=== PATIENT | female | born 1995 | race Caucasian/White ===

== ENCOUNTER 2021-12-16 13:55 | Outpatient (CLI) | payer BC, SELFPAY ==
[2021-12-16 15:31] LABS: Glucose* 97 mg/dL (60-115)
[2021-12-16 16:07] LABS: HIV 1/2/P24 Combo Screen* Negative (Negative)
[2021-12-16 16:17] LABS: Hepatitis C Virus Antibody* Negative (Negative)
[2021-12-16 18:54] LABS: Chlamydia DNA Amplified* NOT DETECTED (No Detected); GC DNA Amplified* NOT DETECTED (No Detected)
[2021-12-19 08:49] LABS: Rapid Plasma Reagin (RPR) Non Reactive (Non Reactive)
[2021-12-20 19:02] LABS: Hepatitis B Surface Antigen* Negative (Negative)
== END 2021-12-16 13:56 | disposition home or self-care (01) ==
PROVIDERS: Visit Provider Registered Nurse
DX: Z01.419 Encounter for gynecological examination (general) (routine) without abnormal findings (principal); Z12.4 Encounter for screening for malignant neoplasm of cervix; Z13.1 Encounter for screening for diabetes mellitus; Z11.3 Encounter for screening for infections with a predominantly sexual mode of transmission
CPT/HCPCS: 82947; 86592; 86703; 86803; 87340; 87491; 87591; 88174

== ENCOUNTER 2022-06-28 16:05 | Outpatient (CLI) | payer BC, SELFPAY ==
[2022-06-28 17:38] LABS: HCG Quantitative* < 2.39 mIU/mL
== END 2022-06-28 16:06 | disposition home or self-care (01) ==
PROVIDERS: Visit Provider Registered Nurse
DX: O20.9 Hemorrhage in early pregnancy, unspecified (principal)
CPT/HCPCS: 84702

== ENCOUNTER 2022-08-31 08:09 | Outpatient (CLI) | payer BC, SELFPAY ==
--- NOTE | 2022-08-31 08:15 | CRLHL7_ITS ---
For Patients: As a result of the Cures Act, medical imaging exams and procedure reports are released immediately into your electronic medical record. You may view this report before your referring provider. If you have questions, please contact your health care provider. INDICATION: First trimester scan, establish dates. COMPARISON: None. TECHNIQUE: Real-time wilson-scale imaging of the pelvis was performed. FINDINGS: Sonographic imaging demonstrates a single living intrauterine gestation. The embryo demonstrates a regular cardiac rate measuring 172 beats per minute. The embryo`s crown-rump length measurement of 2.2 cm corresponds to a gestational age of 8 weeks 6 days with a sonographic due date of 04/06/2023. There is a normal-appearing yolk sac. There are no gross abnormalities noted within the embryo at this early state of development. The gestational sac has a normal appearance. There is no evidence of a perigestational hemorrhage. The amount of fluid within the sac appears appropriate for gestational age. The cervix is closed. The myometrium appears normal. The ovaries are of normal size. Probable corpus luteal cyst right ovary. There are no suspicious fluid collections noted in the cul-de-sac. IMPRESSION: Normal first trimester OB ultrasound exam. Gestational age calculated at 8 weeks 6 days with a sonographic due date of 04/06/2023. Dictated by Lee Cabrales MD @ 08/31/2022 10:06:45 AM (Electronically Signed)
== END 2022-08-31 08:10 | disposition home or self-care (01) ==
PROVIDERS: Visit Provider Physician Assistant
DX: Z34.91 Encounter for supervision of normal pregnancy, unspecified, first trimester (principal); Z3A.08 8 weeks gestation of pregnancy
CPT/HCPCS: 76817; 86703; 86803; 86850; 86900; 86901; 87086; 87340; 87491; 87591

== ENCOUNTER 2022-08-31 09:38 | Outpatient (CLI) | payer BC, SELFPAY ==
[2022-08-31 18:35] LABS: Chlamydia DNA Amplified* NOT DETECTED (No Detected); GC DNA Amplified* NOT DETECTED (No Detected)
== END 2022-08-31 09:39 | disposition home or self-care (01) ==
PROVIDERS: Visit Provider Physician Assistant
DX: Z34.91 Encounter for supervision of normal pregnancy, unspecified, first trimester (principal); Z3A.09 9 weeks gestation of pregnancy
CPT/HCPCS: 86592; 86703; 86762; 86787; 86803; 86850; 86900; 86901; 87086; 87340; 87491; 87591

== ENCOUNTER 2022-11-16 08:08 | Outpatient (CLI) | payer BC, SELFPAY ==
--- NOTE | 2022-11-16 08:15 | CRLHL7_ITS ---
For Patients: As a result of the Century Cures Act, medical imaging exams and procedure reports are released immediately into your electronic medical record. You may view this report before your referring provider. If you have questions, please contact your health care provider. INDICATION: Evaluate anatomy. COMPARISON: 08/31/2022 TECHNIQUE: Real time wilson scale imaging of the fetus was performed as well as color Doppler analysis of the umbilical vessels. FINDINGS: Sonographic imaging demonstrates a single living intrauterine gestation. Fetus demonstrates a regular cardiac rate of 154 beats per minute. Fetus has a variable position. The placenta lies anteriorly without evidence of placenta previa. The head of the placenta is located 3.6 cm from the internal cervical os. Amniotic fluid volume appears normal. Single deepest vertical pocket: 3 point a cm. The cervix is closed and measures 4.3 cm in length. The composite ultrasound gestational age is calculated at 19 weeks 6 days with an estimated sonographic due date of 04/06/2023. The estimated weight is 326 grams which lies at the 37th %. The following biometric measurements were obtained: Biparietal diameter: 4.5 cm/19 weeks 4 days 26th% Head circumference: 16.7 cm/19 weeks 3 days 12th% Abdominal circumference: 14.5 cm/19 weeks 6 days 34th% Femur length: 3.3 cm/20 weeks 2 days 50th% The HC/AC ratio measures: 1.15 range (1.08-1.26) On anatomic survey, there is a normal appearance of the cerebral ventricles, cavum septi pellucidi, cisterna magna and cerebellum. The nose, lips, and facial profile appear normal. The cervical, thoracic and lumbar spine are well visualized and appear normal. There is a normal four-chamber heart view and the left and right ventricular outflow tracts appear normal. The diaphragm and stomach appear normal. The kidneys and bladder also appear normal. There is a normal three-vessel cord and cord insertion site. The four extremities appear normal. IMPRESSION: Normal OB ultrasound exam with concordance of clinical and sonographic dating. No intrinsic abnormalities noted on anatomic survey. Dictated by Lee Cabrales MD @ 11/16/2022 10:07:21 AM (Electronically Signed)
== END 2022-11-16 08:09 | disposition home or self-care (01) ==
LOC: US 08:09
PROVIDERS: Visit Provider Obstetrics & Gynecology
DX: Z34.92 Encounter for supervision of normal pregnancy, unspecified, second trimester (principal); Z3A.20 20 weeks gestation of pregnancy
CPT/HCPCS: 76805

== ENCOUNTER 2023-01-12 13:10 | Outpatient (CLI) | payer BC, SELFPAY | END 2023-01-12 13:11 | disposition home or self-care (01) | PROVIDERS: Visit Provider Obstetrics & Gynecology | DX: Z34.93 Encounter for supervision of normal pregnancy, unspecified, third trimester (principal); Z3A.28 28 weeks gestation of pregnancy | CPT/HCPCS: 86592 ==

== ENCOUNTER 2023-02-20 07:30 | Outpatient (RCR) | payer BC, SELFPAY | END 2023-05-30 10:00 | disposition home or self-care (01) | PROVIDERS: Visit Provider Obstetrics & Gynecology | DX: O99.891 Other specified diseases and conditions complicating pregnancy (principal); M79.18 Myalgia, other site; R10.2 Pelvic and perineal pain; Z51.89 Encounter for other specified aftercare | CPT/HCPCS: 97110; 97112; 97161; 97530 ==

== ENCOUNTER 2023-03-09 15:29 | Outpatient (CLI) | payer BC, SELFPAY ==
[2023-03-10 14:07] LABS: Strep B DNA Probe Negative (Negative)
[2023-03-10 14:09] LABS: Strep B Susceptibility Needed? No
== END 2023-03-09 15:30 | disposition home or self-care (01) ==
LOC: NFLDREF 15:29
PROVIDERS: Visit Provider Obstetrics & Gynecology
DX: Z34.90 Encounter for supervision of normal pregnancy, unspecified, unspecified trimester (principal)
CPT/HCPCS: 87081; 87653

== ENCOUNTER 2023-04-10 16:37 | Inpatient (IN) | payer BC, SELFPAY ==
[2023-04-10 16:58] VITALS: BMI 29.7
[2023-04-10 17:05] VITALS: BP 113/64; PULSE 108; RESP 16; TEMP 36.8
--- NOTE | 2023-04-10 17:06 | W.PM.LDBA ---
Subjective History of Present Illness Date Seen: 04/10/23 Narrative: Patient is being admitted to Labor and Delivery for postdates induction of labor. She is a 27 year old woman at 40 6/7 weeks' gestation. Her full history and physical was dictated by Dr. Castillo on 03/16/23. Please see this for details. Specific Issues/Plans YOVANA 04/04/23 by LMP of 06/28/22 c/w 1st trimester USN Spouse: Nrobert. Baby: Girl. [place] name Healthy. 1. Pubic symphysis pain. PT referral placed 10/27/22 TDap: 01/26/23 Influenza:02/22/23 RSV vaccine: 03/09/23 OB - Problem Based A/P Additional Plan (1) Post-dates : Status: Acute Plan: Cervical ripening with Cook catheter. Using aseptic technique, a Cook catheter is placed. Intrauterine and intravaginal balloons were both inflated to 60 mL. She may have morphine and Vistaril for pain management overnight. Begin low-dose Pitocin at 9:30 p.m.. Anticipate removal of Cook catheter after 12 hours. Continuous monitoring during Pitocin used OB Result Labs GBS Status: negative (03/09/23) OB Exam Physical Exam Vital signs: Pulse BP 108 H 113/64 04/10/23 17:05 04/10/23 17:05 Narrative: Physical exam: General: No acute distress Psych: Alert and oriented x3, full affect HEENT: Normocephalic, atraumatic Heart: Regular rate and rhythm, no murmur rub or gallop Lungs: Clear to auscultation bilaterally Abdomen: Soft, nontender, gravid Lower extremities: No edema or erythema Pelvic exam: Cervix 2 / 70 / -2 / midposition / soft tracing: Baseline 135, accelerations present, no deceleration, moderate variability Infrequent contractions
[2023-04-10 18:13] LABS: Basophils Absolute Auto 0.04 K/uL (0.00-0.30); Basophils Percent Auto 0.4 % (0.0-3.0); Eosinophils Absolute Auto 0.07 K/uL (0.00-0.50); Eosinophils Percent Auto 0.7 % (0.0-7.0); Hematocrit 36.7 % (33.0-51.0); Hemoglobin* 11.9 gm/dL (12.0-16.0); Immature Granulocytes Abs Auto 0.08 K/uL (0.00-0.30); Immature Granulocytes Pct Auto 0.8 %; Lymphocytes Absolute Auto 2.13 K/uL (0.90-2.90); Lymphocytes Percent Auto 21.3 % (20-44); Mean Corpuscular HGB Conc 32 gm/dL (32-36); Mean Corpuscular Hemoglobin 28 pg (26-34); Mean Corpuscular Volume 85 fL (80-100); Monocytes Percent Auto 7.7 % (0.0-11.0); Neutrophils Absolute Auto 6.93 K/uL (1.7-7.0); Neutrophils Percent Auto 69.1 % (42.0-72.0); Platelet Count* 190 K/uL (140-440); RDW Coefficient of Variation % 13.8 % (11.5-15.5); Red Blood Count 4.31 m/uL (4.00-5.20); White Blood Count* 10.02 K/uL (4.50-11.00)
[2023-04-10 18:23] LABS: Slide Review Reflex No
[2023-04-10 19:24] VITALS: PULSE 118; O2SAT 97
[2023-04-10 19:25] VITALS: BP 115/68; PULSE 114; TEMP 36.6
[2023-04-10 19:29] VITALS: PULSE 104; O2SAT 97
[2023-04-10] MEDS: MORPHINE 10 MG/ML inj IM (20:55)
[2023-04-10] MEDS: hydrOXYzine pamoate 25 MG CAPSULE 100 MG PO (20:55)
[2023-04-10 21:02] VITALS: BP 117/69; PULSE 113
[2023-04-10 21:06] VITALS: RESP 18; TEMP 36.6
[2023-04-11] VITALS (83 sets, daily range): BP systolic 84–125; BP diastolic 48–86; PULSE 84–148; RESP 16–18; TEMP 36.6–37.2; O2SAT 94–100
[2023-04-11] MEDS: LACTATED RINGERS 1000 ML 1,000 ML 125 ML IV (02:57)
[2023-04-11] MEDS: OXYTOCIN 30 unit/500 ML in NS 30 UNIT/500 ML BAG IVPB (03:18)
--- NOTE | 2023-04-11 06:11 | PM.OBPNL ---
Subjective Time Seen by Provider: 05:45 Date Seen: 04/11/23 Narrative: Saritha is a 27 yo woman at 41 0/7 weeks here for induction of labor for postdates . She had placement of Cook catheter overnight, and had pitocin started as well. She was able to sleep with help of morphine and Vistaril. Objective Exam: Gen - NAD, lying in bed Cervical exam - Cook catheter removed. Cervix now 5 cm / 85% / -2 station and deviated to patient's left. Bulging bag of water noted. Vital Signs: Last Vital Signs Temp 98.5 F 04/11/23 05:40 Pulse 107 H 04/11/23 05:41 Resp 16 04/11/23 05:40 BP 102/58 L 04/11/23 05:41 Pulse Ox 97 04/10/23 19:29 Comments: tracing: Baseline 135 / accels present / no decels / moderate variability. Contractions appear erratic with varying amplitudes on toco Contractions Pitocin Rate (mU/min): 10 Assessment Assessment: early labor Status: Category l Tracing Comments: Reassuring status. Labor Progress: Cervix now solidly favorable after Cook Catheter. station is no longer engaged. Will increase pitocin, favor repositioning prior to AROM. Maternal Status: Stable. Plan Plan: Continue pitocin augmentation Continuous monitoring Assess for AROM in the next 2 hours
--- NOTE | 2023-04-11 08:26 | PM.OBPNL ---
Objective Vital Signs: Last Vital Signs Temp 98.5 F 04/11/23 05:40 Pulse 95 04/11/23 08:16 Resp 16 04/11/23 05:40 BP 116/72 04/11/23 08:16 Pulse Ox 97 04/10/23 19:29 Contractions Pitocin Rate (mU/min): 10 Assessment Status: Category l
[2023-04-11] MEDS: LACTATED RINGERS 1000 ML 1,000 ML 1200 ML IV (10:34)
[2023-04-11] MEDS: ROPIVACAINE 0.2% 100 ml 100 ML 12 MG EPIDURAL (11:12)
[2023-04-11] MEDS: PHENYLEPHRINE 100 MCG/ML SYRINGE IVP ×2 (11:28→11:42)
[2023-04-11] MEDS: SODIUM CHLORIDE 0.9 % (FLUSH) 10 ML SYRINGE IVF (11:31)
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
[2023-04-11 19:45] LABS: Basophils Percent Auto 0.2 % (0.0-3.0); Eosinophils Percent Auto 0.1 % (0.0-7.0); Hematocrit 33.5 % (33.0-51.0); Immature Granulocytes Pct Auto 0.3 %; Lymphocytes Percent Auto 5.9 % (20-44); Mean Corpuscular HGB Conc 33 gm/dL (32-36); Mean Corpuscular Hemoglobin 28 pg (26-34); Mean Corpuscular Volume 85 fL (80-100); Monocytes Percent Auto 6.9 % (0.0-11.0); Neutrophils Percent Auto 86.6 % (42.0-72.0); Platelet Count* 162 K/uL (140-440); RDW Coefficient of Variation % 13.8 % (11.5-15.5); Red Blood Count 3.94 m/uL (4.00-5.20); White Blood Count* 19.27 K/uL (4.50-11.00)
[2023-04-11 19:46] LABS: Slide Review Reflex No
[2023-04-11 19:56] LABS: Chloride* 106 mmol/L (96-114)
[2023-04-11 19:57] LABS: Potassium* 3.8 mmol/L (3.6-5.1); Sodium* 135 mmol/L (135-149)
[2023-04-11 19:59] LABS: Creatinine* 0.5 mg/dL (0.5-1.5); Est. Creatinine Clearance* 143.36; Estimated Glomerular Filt Rate 130 ml/min
[2023-04-11 20:00] LABS: Anion Gap 8 mEq/L (7-15); Blood Urea Nitrogen* 6 mg/dL (5-24); Calcium* 8.6 mg/dL (8.4-10.6); Carbon Dioxide* 21 mmol/L (20-32); Glucose* 170 mg/dL (60-115)
[2023-04-11] MEDS: ACETAMINOPHEN 500 MG TABLET 1000 MG PO (20:04)
--- NOTE | 2023-04-11 20:09 | W.PM.VAGDEL1 ---
Procedure Procedure Done: Global Events: Other (Late term gestation) Intrapartal Events: Labor Induction Delivery monitor: external FHT Route of delivery: Laceration description: Labial Delivery repair: Vicryl Anesthesia type: Epidural Disposition: floor Complications: None Narrative: Ms. Jean Baptiste is a 27yo GP0 at 41w0d GA. She was admitted to the hospital for IOL in the setting of late term gestation. heart tones on admission were category 1. Her was otherwise uncomplicated. Her labor was induced with cook catheter and pitocin, and epidural were utilized for pain management. Status of bag of elias: AROM performed with return of clear fluid. heart tones during active labor were primarily category 1. She made excellent progress though the active phase of labor was noted to be complete and +2 at 1500. I presented to the bedside, where she was noted to be complete, +3, and direct OA. Fetus made excellent descent with maternal expulsive efforts. FHR tracing was primarily category 1 in the second stage of labor, intermittent variable decelerations. She had a at 1556. Baby delivered OA, restituted RADHA and the anterior and posterior shoulders delivered without difficulty. Loose nuchal cord was noted, delivered through and reduced at the perineum. The cord was clamped and cut after delayed cord clamping. Active management of the third stage was initiated with pitocin and gentle traction on the umbilical cord, and the placenta delivered spontaneous and intact at 1601. Cord gases sent: no Cord blood sent for ABO: no Perineum and vagina were inspected, and the following lacerations were noted: left labial laceration, repaired in the usual fashion with 3-0 vicryl under existing epidural anesthesia. Excellent hemostasis was noted, with total QBL of 100cc. All counts were correct. Mother and in stable condition following the .? Gender: Female presentation: vertex Placental Delivery Description: Spontaneous Cord Description: 3 Vessels and Nuchal Cord
--- NOTE | 2023-04-11 20:22 | P.OBPN_ITS ---
OB - PN:Subj Subjective Time Seen by Provider: 19:25 Date Seen: 04/11/23 Interval history: Patient was noted to be mildly, transient dizziness upon ambulation post- delivery. VS obtained and were notable for tachycardia to 139bp and BP of 95/49mmHg. RR of 16, O2 sat 96. I presented to bedside, where Saritha notes she was feeling better. She notes some tachycardia at baseline and a sensation of being able to hear her pulse in her right ear throughout . This is present at this time, but is normal relative to her baseline. She denies any chest pain, dyspnea, dizziness, lightheadedness. Vaginal bleeding has been appropriate per bedside RN, Saritha affirms she has had no heavy bleeding. No significant perineal or abdominal pain. She has not yet voided since delivery. After transient dizziness, she otherwise continue to ambulate without difficulty. No lower extremity pain, swelling or erythema. OB - PN: Obj Exam Physical Exam: Vital signs: Temp Pulse Resp BP Pulse Ox 98.7 F 139 H 16 95/49 L 96 04/11/23 16:10 04/11/23 18:42 04/11/23 16:10 04/11/23 18:42 04/11/23 11:59 Narrative: Physical exam: General: No acute distress Psych: Alert and oriented x3, full affect Heart: Rapid rate - regular rhythm, no murmur rub or gallop Lungs: Clear to auscultation bilaterally Abdomen: Soft, non-distended. Fundus palpated to right, 1 above U. Perineum: Pad inspected after fundal massage, no appreciable bleeding on pad. OB - PN: Obj Data Labs Labs: Laboratory Results - last 24 hr 04/11/23 19:40 WBC 19.27 H RBC 3.94 L Hgb 11.0 L Hct 33.5 MCV 85 MCH 28 MCHC 33 RDW Coeff of Sharon 13.8 Plt Count 162 Neut % (Auto) 86.6 H Lymph % (Auto) 5.9 L [place] % (Auto) 6.9 Eos % (Auto) 0.1 Baso % (Auto) 0.2 Neut # (Auto) 16.70 H Lymph # (Auto) 1.10 [place] # (Auto) 1.30 H Eos # (Auto) 0.00 Baso # (Auto) 0.00 Abs Immat Gran (auto) 0.10 Imm/Tot Granulo (auto) 0.3 Sodium 135 Potassium 3.8 Chloride 106 Carbon Dioxide 21 Anion Gap 8 BUN 6 Creatinine 0.5 Estimated Creat Clear 143.36 Estimated GFR 130 Glucose 170 H Calcium 8.6 OB - PN: A/P Delivery Assessment and Plan (1) Post-dates : Status: Acute Plan Saritha is PPD0 from [facility] following induction of labor for late term gestation. Her delivery was uncomplicated, QBL of 100 mL with only a left labial laceration. She has had mild and transient dizziness with ambulation, where vitals pleasantly were noted to be significant for mild hypertension and tachycardia to 139 beats per minute. Under review of record, she does have baseline tachycardia throughout her with a typical rate of 100 to 110s. She did intermittently had tachycardia through labor as well. She denies chest pain, dyspnea, dizziness or lightheadedness. No history of cardiovascular disease or hypercoagulable state. Physical exam is entirely reassuring. Her fundus does palpate 1 above umbilicus and off to right, likely secondary to distention of the bladder. Plan to proceed with EKG, CBC and BMP. Addendum at 1999: EKG was notable only for sinus tachycardia with a rate of 134 beats per minute. CBC obtained with hemoglobin of 11, BMP within normal limits. On recheck of vitals, her heart rate is now in the 120s. I suspect the likely etiology of her dizziness/tachycardia was an exacerbation from her baseline in the acute period with possible contributing volume depletion. Patient is well appearing and asymptomatic at this time. She has yet to void, recommend timed voiding with in and out catheterization if ongoing retention is noted.
[2023-04-12] MEDS: ACETAMINOPHEN 500 MG TABLET 1000 MG PO ×3 (03:36→22:01)
[2023-04-12 04:02] VITALS: BP 99/61; PULSE 93; RESP 16; TEMP 36.7; O2SAT 98
[2023-04-12 06:46] LABS: Hemoglobin* 11.9 gm/dL (12.0-16.0)
[2023-04-12] MEDS: IBUPROFEN 600 MG TABLET PO ×2 (08:22→17:21)
[2023-04-12] MEDS: DOCUSATE SODIUM 100 MG CAPSULE PO (08:23)
[2023-04-12 08:26] VITALS: BP 93/61; PULSE 93; RESP 16; TEMP 36.4; O2SAT 96
--- NOTE | 2023-04-12 09:10 | PM.OBPNVD1 ---
OB - PN:Subj Subjective Date Seen: 04/12/23 Interval history: Patient was noted to be mildly, transient dizziness upon ambulation post-delivery. VS obtained and were notable for tachycardia to 139bp and BP of 95/49mmHg. RR of 16, O2 sat 96. I presented to bedside, where Saritha notes she was feeling better. She notes some tachycardia at baseline and a sensation of being able to hear her pulse in her right ear throughout . This is present at this time, but is normal relative to her baseline. She denies any chest pain, dyspnea, dizziness, lightheadedness. Vaginal bleeding has been appropriate per bedside RN, Saritha affirms she has had no heavy bleeding. No significant perineal or abdominal pain. She has not yet voided since delivery. After transient dizziness, she otherwise continue to ambulate without difficulty. No lower extremity pain, swelling or erythema. Patient comments OB post-: no complaints, pain well controlled, tolerating diet and flatus present [place] infant status: and doing well [place] feeding status: exclusively Narrative: The patient feels well.? The pain is well controlled with current medications.? She has no new complaints.? Urinary output is adequate and she is voiding without difficulty.? Has a good appetite, is tolerating a general diet, is passing flatus, and has not had a bowel movement.? Has small amount of rubra lochia.? She is ambulating well.?She denies any further dizziness since the initial event and her pulse has decreased to below 100bpm. She is and is working with nursing staff on getting a good latch. OB - PN: Obj Exam Physical Exam: Vital signs: Temp Pulse Resp BP Pulse Ox O2 Del Method 97.5 F L 93 16 93/61 96 Room Air 04/12/23 08:26 04/12/23 08:26 04/12/23 08:26 04/12/23 08:26 04/12/23 08:26 04/12/23 08:26 Narrative: GENERAL APPEARANCE:? normal affect, alert, no distress? MOOD:? appropriate? CHEST:? clear to auscultation and percussion? HEART:? regular rate and rhythm? ABDOMEN:? soft, non-tender the uterine fundus is U/2 and is appropriate for the stage of recovery.? PERINEUM:? mild edema of the perineum, there is a labial laceration that is healing well.? EXTREMITIES:? normal and no edema? OB - PN: Obj Data Labs Labs: Laboratory Results - last 24 hr 04/11/23 04/12/23 19:40 06:09 WBC 19.27 H RBC 3.94 L Hgb 11.0 L 11.9 L Hct 33.5 MCV 85 MCH 28 MCHC 33 RDW Coeff of Sharon 13.8 Plt Count 162 Neut % (Auto) 86.6 H Lymph % (Auto) 5.9 L [place] % (Auto) 6.9 Eos % (Auto) 0.1 Baso % (Auto) 0.2 Neut # (Auto) 16.70 H Lymph # (Auto) 1.10 [place] # (Auto) 1.30 H Eos # (Auto) 0.00 Baso # (Auto) 0.00 Abs Immat Gran (auto) 0.10 Imm/Tot Granulo (auto) 0.3 Sodium 135 Potassium 3.8 Chloride 106 Carbon Dioxide 21 Anion Gap 8 BUN 6 Creatinine 0.5 Estimated Creat Clear 143.36 Estimated GFR 130 Glucose 170 H Calcium 8.6 OB - PN: A/P Delivery Assessment and Plan (1) Lactating mother: Status: Acute (2) care following vaginal delivery: Status: Acute Plan day: 1 Plan: routine care Comments: Anticipate discharge home tomorrow.
[2023-04-12 11:40] VITALS: BP 94/65; PULSE 105; RESP 16; TEMP 36.3; O2SAT 96
[2023-04-13 00:31] VITALS: BP 92/63; PULSE 79; RESP 18; TEMP 36.3; O2SAT 97
[2023-04-13] MEDS: IBUPROFEN 600 MG TABLET PO (06:00)
--- NOTE | 2023-04-13 08:01 | PM.OBDSVD1 ---
DS: Providers Provider Time Seen by Provider: 08:01 Date Seen: 04/13/23 Date of admission: 04/10/23 16:37 Primary care physician: Not a Local Provider Admitting Clinician: Dolores Castle MD Attending Physician on discharge: Alisha Hodgson MD Date of Discharge: 04/13/23 DS: Diagnosis Discharge Diagnosis (1) care following vaginal delivery: Status: Acute (2) Lactating mother: Status: Acute Exam Narrative: Exam Narrative: VSS, afebrile GENERAL APPEARANCE: ?normal affect, alert, no distress MOOD: ?appropriate HEENT: normocephalic, neck supple, full ROM CHEST: ?Symmetrical chest wall movement. ?Normal respiratory effort. ?Clear to auscultation HEART: ?regular rate and rhythm ABDOMEN: ?soft, non-tender. Uterine fundus is firm, at Umbilicus, Midline and is appropriate for the stage of recovery. ?Bowel sounds present. PERINEUM: ?mild edema of the perineum, there is a left labial laceration that is healing well. EXTREMITIES: ?normal and no edema Const: Vital Signs, click to edit/add: Vital Signs - 24 hr 04/12/23 08:26 04/12/23 11:40 04/13/23 00:31 Temperature 97.5 F L 97.3 F L 97.3 F L Pulse Rate [Pulse Oximeter] 93 105 H 79 Respiratory Rate 16 16 18 Blood Pressure [Le ft Arm] 93/61 94/65 92/63 Pulse Oximetry 96 96 97 Oxygen Delivery Me thod Room Air Room Air Documenting provider has reviewed patient's vital signs: yes OB - DS: Summary Hospital Course Hospital Course: Saritha is a 27 y.o. G 2 P 1 who was admitted [facility] for dates. ?She had an uncomplicated NVD The patient feels well. ?The pain is well controlled with current medications. ?She has no new complaints. ?She is breast feeding and reports things are going well.? the patient has done well.? Vitals have been stable.? She has remained afebrile.? Has a good appetite, is tolerating a general diet. ?She is voiding without difficulty.? She is passing gas and has not had a bowel movement.? She is ambulating and denies any dizziness.? Has Small amount of rubra lochia. She is planning NFP for prevention. Problems: none plan: Discharge home with baby. Follow up in 2 weeks and 6 weeks. , may follow up with if needed Gender: Female Discharge Plan: Home Status at Discharge Functional status at discharge: independent ambulation Overall status at discharge: patient is progressing back to baseline Time Spent with Patient Time attestation: Total time spent providing and/or coordinating discharge services: Time spent: Less than 30 minutes Discharge Plan Discharge Disposition: Home, Self-Care Date of Admission: 04/10/23 16:37 Attending Provider on Discharge: Antonieta Mcdonald Primary Care Provider: Provider,Not a Local Condition: Stable Anticipated Discharge Date/Time: 04/13/23 11:00 Discharge Medications: New docusate sodium 100 mg Capsule 100 mg PO BID PRNQty: 100 0RF Rx Instructions: Take 1 cap 1-2 times a day as needed for constipation ibuprofen 600 mg Tablet 600 mg PO Q6H PRNQty: 60 0RF Continued prenat.vits,phyllis,[id number] Tablet 1 tab PO QDAY Saccharomyces boulardii [Daily Probiotic (S. boulardii)] 250 mg capsule 250 mg PO BID Discharge Orders: Discharge Order (Routine); Ordered 04/13/23 Ordered By: Antonieta Mcdonald Patient Education: OB Over the Counter Medication Information, OB Vaginal/Breast Feeding Additional Instructions: Follow up in 2 weeks and 6 weeks Activity Level: Activity as Tolerated Discharge Diet: Regular Follow Up Appointments: Provider,Not a Local [Primary Care Provider] - Forms: [employer] Info Instructions
[2023-04-13 08:25] VITALS: BP 101/72; PULSE 80; RESP 16; TEMP 36.3; O2SAT 98
[2023-04-13] MEDS: DOCUSATE SODIUM 100 MG CAPSULE PO (08:29)
[2023-04-13] MEDS: ACETAMINOPHEN 500 MG TABLET 1000 MG PO (09:52)
== END 2023-04-13 12:10 | disposition home or self-care (01) | DRG 560 ==
PROVIDERS: Admitting Provider Obstetrics & Gynecology; Visit Provider Obstetrics & Gynecology
DX: O48.0 Post-term pregnancy (principal); O70.0 First degree perineal laceration during delivery; O99.892 Other specified diseases and conditions complicating childbirth; R00.0 Tachycardia, unspecified; R42 Dizziness and giddiness; Z3A.40 40 weeks gestation of pregnancy; Z37.0 Single live birth
CPT/HCPCS: 01967; 36415; 59200; 80048; 85018; 85025; 86850; 86900; 86901; 88307; 93005; A9270; C1726; J2270; J2371; J2795; J7120; S0020

== ENCOUNTER 2023-04-20 10:54 | Outpatient (CLI) | payer BC, SELFPAY ==
--- NOTE | 2023-04-20 17:00 | W.PM.LAC.MC ---
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 Meng Jaundice: No Reason for Consult Reason for Consult: pain with Past Experience Past Experience: No Current Frequency of Day Feedings: about every three hours Frequency of Night Feedings: about every four hours Both Breasts: Yes Suck: fairly strong Latch: fairly wide Length of Time: 5 - 7 Pumping Pumping: Yes (only a few times) Quantity Pumped: 1 - 1.5 oz Supplementing EMB Supplement: Yes (a few times when she really had difficulty latching baby) Formula Supplement: No Baby Elimination Number of Wet Diapers a Day: every feeding Number of BM a Day: at least every other feeding, yellow and seedy Breast/Nipple Condition Breast Information: WNL Maternal Nipple Condition - Left: Common Nipple Maternal Nipple Condition - Right: Common Nipple Sore Nipples: Yes (resolving) Interventions for Sore Nipples: Breast Shells and Other (nipple cream) Onsite Pre-Feed weight: 3.374 kg Post-Feed weight: 3.474 kg Milk Transferred (mL): 100 Assessments/Interventions Assessments/Interventions: Met with mom and this now 9 day old ex- term AGA baby for consult. Mom reports has gotten better as the week has progressed. She states her engorgement has almost resolved and the damage to her left nipple has almost completely healed. She reports baby is nursing about every three hours during the day and every four hours overnight. POC usually have to wake her up, but when they do she nurses well. Mom offers both sides and baby will nurse about 10 min/5 - 7 min. Mom has pumped on occasion and gets between 1 - 1.5 oz total each time. Baby has been given a bottle 1 - 2 times when she wouldn't latch. Breasts WNL- symmetrical with rounded lower quadrants, intramammary distance is < 1.5 inches. Nipples are everted and don't flatten or retract on compression. No damage noted on the right, but the left has a very small fissure in the center of the nipple. Per mom it's healing well. Baby has gained 21 grams/day since her NB visit on 04/17 and she's already 114 grams (3.8 oz) over BW at 9 DOL. Baby didn't have a caput or cephalohematoma at delivery. Per dad she may favor turning her head to the right, but seems to have equal ROM when moving her extremities. Her palate is a little high. Her upper frenulum is a little tight as the gums shahram when it's flanged and she's developing a suck blister in the middle of her upper lip. She has a fairly strong suck on a finger, but the tongue doesn't consistently extend past the gum line. The tongue has good lateral movement and the lower frenulum looks to be WNL. Mom latched baby to the right side and she had a deep latch immediately, she was comfortable. Baby nursed about 15 minutes, coming off once when mom's flow picked up. Mom then switched to the left. She had a little more difficulty getting as deep a latch, but it was better when she brought baby to her quickly, Baby nursed another 5 minutes before falling asleep. She was weighed and had transferred 100 ml (3.3 oz). Mom was measured and a flange size suggested, handout reviewed. POC were shown an exercise to help baby more consistently extend her tongue over the gum line. Also gave ideas on how to encourage baby to turn to the left. Plan: 1. Continue to nurse baby every 3 - 4 hours, ok to wake her up if she's not rousing on her own. Suggested mom continue to offer both sides at each feeding. 2. Suggested mom only pump or hand express to comfort if needed for now. No medical need to pump to empty and start storing milk. 3. Suggested she wait to introduce a bottle again until baby is about 1 month old, then she could start pumping once/day if desired. 4. Will f/u with PCP for a 2 week WCC and in 1 month for a pre and post feeding weight. Asked mom to call if left nipple doesn't completely heal and/or she fees the suck blister is getting worse. Meds Home Medications and Allergies Home Medications Medication Instructions Recorded Confirmed Type prenat.vits,phyllis,[id number] 1 tab PO QDAY 12/16/21 04/24/23 History Saccharomyces boulardii 250 mg 250 mg PO BID 09/29/22 04/24/23 History capsule (Daily Probiotic (S. boulardii)) Allergies Allergy/AdvReac Type Severity Reaction Status Date / Time No Known Allergies Allergy Verified 04/24/23 12:43
== END 2023-04-20 10:55 | disposition home or self-care (01) ==
LOC: OB LAC 10:54
PROVIDERS: Visit Provider Obstetrics & Gynecology
DX: P92.5 Neonatal difficulty in feeding at breast (principal)
CPT/HCPCS: 99211

== ENCOUNTER 2024-08-01 09:30 | Outpatient (CLI) | payer BC, SELFPAY ==
[2024-08-03 01:51] LABS: HPV Source Cervix; HPV, High Risk by TMA Not Detected
== END 2024-08-01 09:31 | disposition home or self-care (01) ==
PROVIDERS: Visit Provider Obstetrics & Gynecology
DX: Z12.4 Encounter for screening for malignant neoplasm of cervix (principal)
CPT/HCPCS: 87624; 87625; 88141; 88142